=== PATIENT | female | born 2005 | race Asian ===

== ENCOUNTER 2024-05-31 01:18 | Emergency (ER) | payer MEDICAID ==
[~2024-05-31] VITALS: Ht 157.5 cm; Wt 59.0 kg
[2024-05-31 01:27] VITALS: PULSE 99; RESP 18; TEMP 98.3; O2SAT 97
== END 2024-05-31 01:45 | disposition home or self-care (01) ==
LOC: SED 01:18
DX: K08.89 Other specified disorders of teeth and supporting structures (principal); R22.0 Localized swelling, mass and lump, head; W18.39XA Other fall on same level, initial encounter; Y93.89 Activity, other specified; Y92.89 Other specified places as the place of occurrence of the external cause; Y99.8 Other external cause status
CPT/HCPCS: 99281